=== PATIENT | male | born 1950 | race Caucasian/White ===

== ENCOUNTER 2018-11-24 07:09 | Day surgery (SDC) | payer MEDICARE ==
[~2018-11-24] VITALS: Ht 182.9 cm; Wt 75.3 kg
[~2018-11-24 07:09] MED LIST: ASCO500 PO; Aspir 8181 MG PO; Avodart0.5 MG PO; FINA5 PO; GLUCOSAMINE &1 EACH PO; SILDENAFIL20 MG PO; TAMS.4ER PO
== END 2018-11-24 09:28 | disposition home or self-care (01) ==
LOC: ORSCSDS 07:09
PROVIDERS: Student in an Organized Health Care Education/Training Program
PROC: 0DBN8ZX Excision of Sigmoid Colon, Via Natural or Artificial Opening Endoscopic, Diagnostic (ICD-10-PCS; principal; 2018-11-24 08:30)
DX: Z12.11 Encounter for screening for malignant neoplasm of colon (principal); K63.5 Polyp of colon; Z86.010 Personal history of colon polyps; E78.5 Hyperlipidemia, unspecified; Z87.891 Personal history of nicotine dependence; Z79.82 Long term (current) use of aspirin; Z79.899 Other long term (current) drug therapy
CPT/HCPCS: 88305; J0330; J1980; J2405; J7120

== ENCOUNTER 2023-10-06 06:01 | Day surgery (SDC) | payer MEDICARE ==
[~2023-10-06] VITALS: Ht 177.8 cm; Wt 73.8 kg
[2023-10-06] VITALS (15 sets, daily range): BP systolic 121–152; BP diastolic 50–73
[~2023-10-06 06:01] MED LIST changes: +DICL75ER PO; +MULVITA PO
[2023-10-06] MEDS ORDERED: Diclofenac Pota50 MG PO (06:22)
--- NOTE | 2023-10-06 06:52 | NUR ---
Ambulatory in Day Surgery History, Chart, Medications and Allergies reviewed before start of procedure. Pre-Op teaching done. Pt verbalizes understanding.
--- NOTE | 2023-10-06 11:01 | NUR ---
ARRIVAL TO SURGICAL UNIT IN HOSPITAL BED. ALERT & PLEASANT. ASSESSMENT CHARTED. ABLE TO WIGGLE TOES BUT NOT MOVE BLE R/T SPINAL. DENIES NAUSEA. WATER & SNACKS GIVEN. SPOUSE AT SIDE.
--- NOTE | 2023-10-06 18:21 | NUR ---
SHIFT SUMMARY PT HAS DONE WELL POST OP. PAIN WELL CONTROLLED. WORKED w/ BOTH THERAPIES. EATING, DRINKING VOIDING. SURG SITES WNL.
[2023-10-07 00:44] VITALS: BP 138/63
--- NOTE | 2023-10-07 04:24 | NUR ---
SHIFT SUMMARY PT POD 0 RIGHT TOTAL HIP, PT HAS DONE WELL OVERNIGHT. PAIN HAS BEEN CONTROLLED WITH MEDS PER EMAR. HE HAS BEEN UP AND AMBULATING, TOLERATING PO INTAKE AND IS VOIDING. DRESSING C/D/I. VITALS STABLE. BED IN LOWEST POSITION, CALL LIGHT WITHIN REACH.
[2023-10-07 04:57] VITALS: BP 142/60
[2023-10-07 05:13] LABS: BASOPHILS ABSOLUTE AUTO 0.04 K/mm3 (0.00-0.23); BASOPHILS PERCENT AUTO 0 % (0-2); EOSINOPHILS ABSOLUTE AUTO 0.04 K/mm3 (0.00-0.68); EOSINOPHILS PERCENT AUTO 0 % (0-6); Hematocrit 32.9 % (37.0-53.0); Hemoglobin 11.3 g/dL (13.5-17.5); IMMATURE GRAN ABSOLUTE AUTO 0.03 K/mm3 (0.00-0.10); IMMATURE GRAN PERCENT AUTO 0 % (0-1); LYMPHOCYTES ABSOLUTE AUTO 1.87 K/mm3 (0.84-5.20); LYMPHOCYTES PERCENT AUTO 20 % (21-46); MONOCYTES ABSOLUTE AUTO 0.71 K/mm3 (0.16-1.47); MONOCYTES PERCENT AUTO 7 % (4-13); Mean Corpuscular HGB 32.4 pg (26.0-34.0); Mean Corpuscular HGB Conc 34.3 g/dL (31.5-36.5); Mean Corpuscular Volume 94 fL (80-100); Mean Platelet Volume 9.1 fL (9.1-12.4); NEUTROPHILS ABSOLUTE AUTO 6.92 K/mm3 (1.96-9.15); NEUTROPHILS PERCENT AUTO 72 % (41-73); Platelet Count 278 K/mm3 (150-400); RDW Standard Deviation 41.9 fL (35.1-46.3); Red Blood Cell Count 3.49 M/mm3 (4.30-5.90); White Blood Cell Count 9.61 K/mm3 (4.00-11.30)
[2023-10-07 06:11] LABS: Bun/Creatinine Ratio 18.3 (12.0-20.0); Calcium, Blood 8.6 mg/dL (8.5-10.1); Creatinine, Blood 0.77 mg/dL (0.60-1.20); Potassium, Blood 3.8 mmol/L (3.5-5.5)
[2023-10-07 07:21] VITALS: BP 146/80
[2023-10-07] MEDS ORDERED: OXYC5 PO (07:45)
[2023-10-07] MEDS ORDERED: PROM25 PO (07:47)
[2023-10-07] MEDS ORDERED: XARELTO20 MG PO (07:47)
[2023-10-07 09:21] VITALS: BP 134/63
--- NOTE | 2023-10-07 09:35 | NUR ---
PT CLEARED THERAPY. WRITTEN AND VERBAL DISCHARGE INSTRUCTIONS PROVIDED. VSS. PT WAITING FOR HIS TO TAKE HIM HOME.
--- NOTE | 2023-10-07 10:28 | NUR ---
DISCHARGE PT ASSISTED OUT IN WHEELCHAIR AT APPROXIMATELY 1000.
== END 2023-10-07 10:00 | disposition home or self-care (01) ==
LOC: ORSCMMR 06:01 → ORD 07:30 → ORSCMMR 07:30 → SURS 10:49 → ORSCMMR 10-07 10:00
PROVIDERS: Orthopaedic Surgery
PROC: 0SR90JA Replacement of Right Hip Joint with Synthetic Substitute, Uncemented, Open Approach (ICD-10-PCS; principal; 2023-10-06 07:30)
DX: M16.11 Unilateral primary osteoarthritis, right hip (principal); Z87.891 Personal history of nicotine dependence; Z79.899 Other long term (current) drug therapy; Z79.82 Long term (current) use of aspirin
CPT/HCPCS: 36415; 72170; 80048; 83735; 85025; 97110; 97116; 97162; 97165; 97535; A9270; C1713; C1776; J0171; J0690; J0735; J1100; J1885; J2250; J2405; J2704; J2795; J3010; J7120

== ENCOUNTER 2025-06-17 07:25 | Emergency (ER) | payer MEDICARE ==
[~2025-06-17] VITALS: Ht 177.8 cm; Wt 77.1 kg
[~2025-06-17 07:25] MED LIST changes: +Diclofenac Pota50 MG PO; +OXYC5 PO; +PROM25 PO; +XARELTO20 MG PO
[2025-06-17 07:54] LABS: BASOPHILS ABSOLUTE AUTO 0.06 K/mm3 (0.00-0.23); BASOPHILS PERCENT AUTO 1 % (0-2); EOSINOPHILS ABSOLUTE AUTO 0.34 K/mm3 (0.00-0.68); EOSINOPHILS PERCENT AUTO 7 % (0-6); Hematocrit 42.5 % (37.0-53.0); Hemoglobin 14.4 g/dL (13.5-17.5); IMMATURE GRAN ABSOLUTE AUTO 0.01 K/mm3 (0.00-0.10); IMMATURE GRAN PERCENT AUTO 0 % (0-1); LYMPHOCYTES ABSOLUTE AUTO 1.16 K/mm3 (0.84-5.20); LYMPHOCYTES PERCENT AUTO 22 % (21-46); MONOCYTES ABSOLUTE AUTO 0.34 K/mm3 (0.16-1.47); MONOCYTES PERCENT AUTO 7 % (4-13); Mean Corpuscular HGB Conc 33.9 g/dL (31.5-36.5); Mean Corpuscular Volume 95 fL (80-100); NEUTROPHILS ABSOLUTE AUTO 3.31 K/mm3 (1.96-9.15); NEUTROPHILS PERCENT AUTO 64 % (41-73); NRBC ABSOLUTE 0.00 K/mm3 (0.00-0.02); NRBC Auto 0.0 /100 WBC (0.0-0.2); Platelet Count 332 K/mm3 (150-400); RDW Coefficient Variation 12.2 % (11.7-14.2); RDW Standard Deviation 42.9 fL (35.1-46.3)
[2025-06-17 08:16] LABS: Alanine Aminotransfer (ALT/SGP 28.0 U/L (12-78); Albumin, Blood 3.6 g/dL (3.4-5.0); Albumin/Globulin Ratio 0.9 (0.8-1.8); Anion Gap 9.0 mmol/L (3-11); Aspartate Aminotrans (AST/SGOT 23.0 U/L (12-37); Bilirubin, Total 0.6 mg/dL (0.1-1.0); Blood Urea Nitrogen 19.0 mg/dL (8-24); CO2, Blood 26.0 mmol/L (21-32); Calcium, Blood 8.8 mg/dL (8.5-10.1); Chloride, Blood 101.0 mmol/L (98-108); Creatinine, Blood 0.7 mg/dL (0.60-1.20); Globulin, Blood 4.0 g/dL (2.2-4.0); Glucose, Blood 108.0 mg/dL (70-99); Potassium, Blood 4.2 mmol/L (3.5-5.5); Sodium, Blood 132.0 mmol/L (136-145); Total Protein, Blood 7.6 g/dL (6.4-8.2)
[2025-06-17] MEDS ORDERED: Amlodipine Bes2.5 MG PO (09:15)
[2025-06-17 09:24] VITALS: BP 162/74
== END 2025-06-17 09:24 | disposition home or self-care (01) ==
LOC: ER 07:25
PROVIDERS: Student in an Organized Health Care Education/Training Program
DX: I10 Essential (primary) hypertension (principal); Z88.1 Allergy status to other antibiotic agents; Z79.82 Long term (current) use of aspirin; Z79.899 Other long term (current) drug therapy; Z87.891 Personal history of nicotine dependence
CPT/HCPCS: 71046; 80053; 84484; 85025; 93005; 93010; 99284-25